=== PATIENT | male | born 1985 | race Asian ===

== ENCOUNTER 2020-12-10 13:18 | Outpatient (CLI) | payer BC, OTHER ==
[~2020-12-10] VITALS: Ht 182.9 cm; Wt 97.1 kg
== END 2020-12-10 20:15 | disposition home or self-care (01) ==
LOC: INF 13:18
PROVIDERS: ATTEND Family Medicine
DX: Z23 Encounter for immunization (principal); U07.1 COVID-19
CPT/HCPCS: 96365; Q0239; Q0245